=== PATIENT | male | born 2000 | race Caucasian/White ===

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

== ENCOUNTER 2022-07-24 14:13 | Emergency (ER) | payer BC ==
[2022-07-24 15:03] VITALS: BP 176/94; PULSE 71
== END 2022-07-24 16:00 | disposition home or self-care (01) ==
LOC: MW.ED 14:13
DX: S60.131A Contusion of right middle finger with damage to nail, initial encounter (principal); W23.0XXA Caught, crushed, jammed, or pinched between moving objects, initial encounter
CPT/HCPCS: 11740; 73130-26-RT; 73130-RT; 99283; 99283-25